=== PATIENT | male | born 1955 | race Caucasian/White ===

== ENCOUNTER 2019-07-05 14:30 | Inpatient (IN) | payer BC, SELFPAY ==
--- NOTE | ~2019-07-05 | CT_ITS ---
EXAMINATION: CT abdomen pelvis w con DATE: 07/05/2019 16:04 INDICATION: Left lower quadrant abdominal pain TECHNIQUE: Computed tomography (CT) of the abdomen and pelvis was performed with 100 cc Omnipaque 350 intravenous contrast. The dose-length product was 352.06 mGy-cm. Automated exposure control and iter ative reconstruction technique were employed. COMPARISON: None. FINDINGS: Lung bases are unremarkable. Heart size normal. Mild atherosclerosis without aneurysm. The liver, spleen, pancreas, adrenal glands are unremarkable. There are bilateral renal cysts, larges t in the left kidney measuring 5.7 cm. There are gallstones. There are multiple walled off fluid collections in the pelvis containing gas and fluid, consistent wi th multifocal abscess formation. There is thickening of the sigmoid colon. There is moderate phlegmon ous change in the pelvis. There is a left inguinal hernia containing nonobstructed colon. There is in flammatory change in the hernia sac. The appendix is not definitively visualized. IMPRESSION: 1. Abnormal thickening of the sigmoid colon. There is extensive phlegmonous change in the pelvis with multiple areas of abscess. There is suggestion of a thickened inflamed appendix on the coronal recon struction images, 59-63. Differential diagnosis includes perforated appendicitis and/or diverticuliti s. 2: Left inguinal hernia containing nonobstructed colon and phlegmonous change. 3: Cholelithiasis. Reviewed, dictated and finalized at location A. IMPRESSION: 1. Abnormal thickening of the sigmoid colon. There is extensive phlegmonous christ nge in the pelvis with multiple areas of abscess. There is suggestion of a thic kened inflamed appendix on the coronal reconstruction images, 59-63. Differenti al diagnosis includes perforated appendicitis and/or diverticulitis. 2: Left inguinal hernia containing nonobstructed colon and phlegmonous change. 3: Cholelithiasis.
--- NOTE | ~2019-07-05 | XR_ITS ---
EXAMINATION: XR abdomen/kub 1V DATE: 07/07/2019 05:25 INDICATION: Abdominal distention. TECHNIQUE: A supine view of the abdomen was obtained. COMPARISON: CT abdomen and pelvis 07/05/2019 FINDINGS: There are multiple dilated loops of small bowel. The colon is normal in caliber. IMPRESSION: 1. Dilated small bowel, consistent with adynamic ileus versus small bowel obstruction. Reviewed, dictated and finalized at location A. IMPRESSION: 1. Dilated small bowel, consistent with adynamic ileus versus small bowel obstr uction.
[2019-07-05 14:35] VITALS: BP 182/101; PULSE 84; RESP 22; TEMP 36.2; O2SAT 100
--- NOTE | 2019-07-05 14:44 | ED.ABDPAIN ---
HPI - Abdominal Pain General Chief Complaint: Abdominal Pain Stated Complaint: Abd Pain Time Seen by Provider: 07/05/19 14:35 History of Present Illness HPI narrative: Patient presents with 1 week of left lower quadrant abdominal pain. He has had a left inguinal hernia for many years and was told in the past to get it fixed. The pain is 6-7 out of 10 worse with palpitation. The pain is also worse with the effort to urinate or pass stool. He has no nausea or vomiting. He has had no blood in the stool. 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 He takes no prescription medications; he has no medication allergies. He has had left rotator cuff surgery in the past left wisdom tooth extraction and circumcision. He does not smoke drink or do recreational drugs. MD elicited complaint: abdominal pain Pertinent past history: other Onset (ago): week(s) Pain Consistency: constant Location: LLQ Severity: severe Radiation: none Exacerbating factors: bowel movement Relieving factors: nothing Context: confirms other Related Data Home Medications Medication Instructions Recorded Confirmed No Home Medications 07/05/19 07/05/19 Allergies Allergy/AdvReac Type Severity Reaction Status Date / Time No Known Allergies Allergy Verified 07/05/19 14:55 Review of Systems Review of Systems: Narrative: CONSTITUTIONAL: Denies fever, chills, or sweats. EYES: Denies visual changes, redness, or discharge. ENT: Denies rhinorrhea, congestion, sore throat, or otalgia. CARDIOVASCULAR: Denies chest pain, palpitations, or edema. RESPIRATORY: Denies cough or dyspnea. GASTROINTESTINAL: Denies nausea, vomiting, or diarrhea. GENITOURINARY: Denies dysuria or hematuria. SKIN: Denies rash or itching. MUSCULOSKELETAL: Denies back pain, joint pain, or myalgia. NEUROLOGIC: Denies headache, numbness, or weakness. PSYCHIATRIC: Denies anxiety or depression. [facility] Social History Social History (Updated 07/05/19 @ 15:04 by Tena Delanye MD) Smoking status: Never smoker Alcohol intake: never Substance use: never Gender identity (if verbalized by the patient): Male Exam Narrative: Exam Narrative: GENERAL: Well-appearing, well-nourished, and in no acute distress. HEAD: Normocephalic, atraumatic. EYES: PERRLA and EOMI. ENT: Nares clear, no rhinorrhea or epistaxis. Mucous membranes moist. NECK: Supple. CHEST: Clear to auscultation. No respiratory distress. HEART: Regular rate and rhythm. No murmur heard. Normal peripheral pulses. ABDOMEN: Soft, distended, tender in the left lower quadrant. EXTREMITIES: Normal range of motion. No edema. SKIN: Warm, dry, no rash. NEURO: No focal deficits. Alert and oriented x3. PSYCH: Normal mood and affect. Course Course Emergency Course: 1634 Told the patient about the abscesses and that he will need surgery. He last ate at 10 AM. He said that the morphine helped some. I will call a general surgeon. Reevaluation(s) Reevaluation #1: The morphine helped the pain a little. He is okay with surgery. Date: 07/05/19 Time: 16:36 Consultations Consultation #1: Called Dr. Noyola and he will admit and continue the zosyn and consider surgery. Date: 07/05/19 Time: 16:48 Vital Signs Vital signs: Vital Signs Temperature 97.2 F L 07/05/19 14:35 Pulse Rate 84 07/05/19 14:35 Respiratory Rate 22 H 07/05/19 14:35 Blood Pressure 182/101 H 07/05/19 14:35 Pulse Oximetry 100 07/05/19 14:35 Temperature 97.2 F L 07/05/19 14:35 Pulse Rate 84 07/05/19 14:35 Respiratory Rate 22 H 07/05/19 14:35 Blood Pressure 182/101 H 07/05/19 14:35 Pulse Oximetry 100 07/05/19 14:35 MDM - Abdominal Pain Lab Data Attestation: I reviewed the patient's lab results. Result diagrams: 07/05/19 14:53 07/05/19 14:53 Labs: Lab Results 07/05/19 07/05/19 07/05/19 Range/Units 14:53 14:53 15:15 WBC 17.4 H (4.5-10.0) K/mm3 RBC 5.13 (4.6-6.20) M/mm3 Hgb 14.3 (14.0-
[2019-07-05] MEDS: MORPHINE SULFATE 4 MG/ML INJ IV PUSH ×2 (14:54→16:47)
[2019-07-05] MEDS: SODIUM CHLORIDE 0.9% IV 1,000 ML 150 ML IV CONT ×2 (14:54→17:43)
[2019-07-05 15:02] LABS: Basophils Absolute Auto 0.1 K/mm3 (0.0-0.1); Basophils Percent Auto 0.3 % (0.2-1.2); Eosinophils Absolute Auto 0.1 K/mm3 (0-0.3); Eosinophils Percent Auto 0.4 % (0-4.4); Hematocrit 44.2 % (42.0-52.0); Hemoglobin 14.3 g/dL (14.0-18.0); Immature Granulocyte Absolute 0.41 K/mm3 (0.00-0.031); Immature Granulocyte Percent A 2.4 % (0-0.5); Lymphocytes Absolute Auto 1.59 K/mm3 (0.9-3.2); Lymphocytes Percent Auto 9.1 % (18.3-44.2); Mean Corpuscular HGB Conc 32.4 g/dl (32-36); Mean Corpuscular Hemoglobin 27.9 pg (26-34); Mean Corpuscular Volume 86.2 fl (80-100); Mean Platelet Volume 10.2 fl (7.4-10.4); Monocytes Absolute Auto 1.2 K/mm3 (0.1-0.6); Monocytes Percent Auto 6.6 % (2.6-8.5); Neutrophils Absolute Auto 14.1 K/mm3 (1.3-6.7); Neutrophils Percent Auto 81.2 % (45.5-73.1); Platelet Count Result 204 k/mm3 (150-375); Red Blood Count 5.13 M/mm3 (4.6-6.20); Red Cell Distribution Width 13.2 % (11.5-14.5); White Blood Count 17.4 K/mm3 (4.5-10.0)
[2019-07-05 15:10] LABS: Alanine Aminotransferase 100 U/L (4-50); Albumin Level 3.5 g/dL (3.5-5.1); Alkaline Phosphatase 156 U/L (38-126); Aspartate Amino Transferase 38 U/L (17-59); Bilirubin,Total 0.6 mg/dL (0.2-1.3); Blood Urea Nitrogen 17 mg/dL (9-20); Calcium 8.7 mg/dL (8.4-10.2); Carbon Dioxide 30 mmol/L (22-30); Chloride 97 mmol/L (98-107); Estimated CRCL calculation 70 ml/min; Estimated Glomerular Filt Rate > 60; Glucose 190 mg/dL (75-110); Lipase 105 U/L (23-300); Potassium 3.1 mmol/L (3.4-5.0); Sodium 134 mmol/L (137-145)
[2019-07-05 15:26] LABS: Add Urine Microscopic? YES; Appearance Urine Clear (Clear); Bilirubin Urine Negative (Negative); Blood Urine Negative (Negative); Color Urine Yellow (Yellow); Glucose Urine UA 3+ mg/dL (Negative); Ketones Urine Negative (Negative); Leukocyte Esterase Ur Negative LEU/UL (Negative); Mucus Urine Rare /lpf; Nitrate Urine Negative (Negative); Protein Urine Negative (Negative); RBC Urine 0-2 /hpf (0-2); Specific Grav Ur 1.025 (1.001-1.035); WBC Urine 0-3 /hpf
[2019-07-05] MEDS: Please add drug allergy info to patient profile. 1 EACH XX (16:47)
[2019-07-05 17:34] VITALS: BP 132/82; PULSE 77; RESP 16; O2SAT 100
--- NOTE | 2019-07-05 19:01 | ADMGEN ---
This patient, Dino Kent, was admitted to 3 Med Surg Room 320-01. Patient/family oriented to hospital policies and general routines including ID bracelet, bed and alarms, visiting hours, pain management, procedures, bathroom and other care routines, personal items, smoking policy, room service/diet, and visiting hours. Valuables list has been completed. Information on how to activate the Rapid Response Team has been discussed. Patient/Family are encouraged to report perceived risks to care and to ask questions if they do not understand what they are told or what they should do.
[2019-07-05 19:03] VITALS: BMI 25.5
[2019-07-05 21:27] VITALS: BP 137/71; PULSE 71; RESP 18; TEMP 36.9; O2SAT 98
[2019-07-06 05:22] VITALS: BP 132/75; PULSE 73; RESP 16; TEMP 36.6; O2SAT 99
[2019-07-06] MEDS: KCL 40 MEQ/0.9% SOD CHL 1,000 ML 150 ML IV CONT ×2 (08:09→16:57)
--- NOTE | 2019-07-06 10:11 | PM.IMHP ---
H&P: HPI History of Present Illness Chief complaint: pelvic abscesses Narrative: Dino Kent is a 63 year old male who presented to the emergency department yesterday with abdominal pain for the past week. He started out with upper abdominal pain that eventually migrated to the lower midline. Was experiencing nausea and vomiting and also felt somewhat feverish. His temperature was over 99 last Friday. He was not having much appetite and felt like he would vomit anything up. He was also noted to be hyperglycemic at work last week and was sent home from work. His pain did seem to improve temporarily 3 days ago. On Friday the pain was feeling somewhat better and he felt like he could tolerate some food. By Friday evening the pain was coming back worse again. He has never experienced anything quite like this before. He was experiencing some constipation along with the pain, but by Friday his bowels were moving. Review of Systems Review of Systems: All systems reviewed & are unremarkable except as noted in HPI and below Constitutional: Constitutional: Reports fever(s) Eyes: Eyes: Denies change in vision ENT: Denies hearing loss, Denies neck pain and Denies sore throat Cardiovascular: Cardiovascular: Denies chest pain and Denies dyspnea Respiratory: Respiratory: Denies cough, Denies dyspnea and Denies wheezing Gastrointestinal: Gastrointestinal: Reports as per HPI Genitourinary: Genitourinary: Denies hematuria and Denies dysuria Musculoskeletal: Musculoskeletal: Denies arthralgias, Denies joint swelling and Denies neck pain Allergic/Immunologic: Allergic/Immunologic: Denies wheezing PMFSH Surgical History Surgical History (Updated 07/06/19 @ 10:15 by Azar Noyola DO) History of rotator cuff surgery History of wisdom tooth extraction Family History Family History Father Hypertension Social History Social History Smoking status: Never smoker Second hand tobacco smoke exposure: No Alcohol intake: former Substance use: never Substance use type: does not use Gender identity (if verbalized by the patient): Male Spiritual care concerns: No Meds Home Medications and Allergies Home Medications Medication Instructions Recorded Confirmed Type No Home Medications 07/05/19 07/05/19 History Allergies Allergy/AdvReac Type Severity Reaction Status Date / Time No Known Allergies Allergy Verified 07/05/19 14:55 Vital Signs Vital Signs - 24 hr 07/05/19 14:35 07/05/19 17:34 07/05/19 21:27 Temperature 36.2 C L 36.9 C Pulse Rate 84 77 71 Respiratory Rate 22 H 16 18 Blood Pressure 182/101 H 132/82 137/71 Pulse Oximetry 100 100 98 07/06/19 05:22 Temperature 36.6 C Pulse Rate 73 Respiratory Rate 16 Blood Pressure 132/75 Pulse Oximetry 99 Exam Const: General: alert; No acute distress Orientation/consciousness: patient oriented x3 Limitations: no limitations HENMT: Head: normocephalic and atraumatic Ears: hearing grossly normal bilaterally General nose exam: Normal external nose present and Normal nares present Mouth: Yes Normal oral and palatal mucosa present and Yes moist mucous membranes Eyes: General: appearance normal, both eyes and all related structures Conjunctivae: conjunctivae normal Sclera: sclerae normal Pupils: Equal, round and reactive pupils present EOM: EOMs intact bilaterally Neck: Neck: normal visual inspection, full ROM, no lymphadenopathy, supple and no JVD Lymphatic: no lymphadenopathy noted Chest: Chest palpation & inspection: normal inspection of the chest Resp: Effort & Inspection: normal respiratory effort and able to speak in complete sentences Auscultation: clear to auscultation bilaterally Percussion: percussion normal Cardio: Jugular venous distension: no JVD Rate: regular rate Rhythm: regular rhythm Hea
[2019-07-06] MEDS: ENOXAPARIN 40 MG/0.4 ML SYRINGE SUB-Q (13:11)
[2019-07-06] MEDS: HYDROMORPHONE HCL 1 MG/ML INJ 0.5 MG IV PUSH ×2 (13:15→20:29)
[2019-07-06 14:00] VITALS: BP 148/76; PULSE 78; RESP 16; TEMP 36.9; O2SAT 99
[2019-07-06 22:00] VITALS: BP 135/69; PULSE 85; RESP 16; TEMP 37.4; O2SAT 97
[2019-07-07] VITALS (12 sets, daily range): BP systolic 143–185; BP diastolic 78–94; PULSE 68–91; RESP 14–21; TEMP 36.3–37.1; O2SAT 96–100
[2019-07-07] MEDS: HYDROMORPHONE HCL 1 MG/ML INJ 0.5 MG IV PUSH ×4 (02:16→13:08)
[2019-07-07] MEDS: KCL 40 MEQ/0.9% SOD CHL 1,000 ML 150 ML IV CONT ×2 (02:17→09:15)
[2019-07-07 06:51] LABS: Blood Urea Nitrogen 10 mg/dL (9-20); Carbon Dioxide 26 mmol/L (22-30); Chloride 102 mmol/L (98-107); Estimated CRCL calculation 57 ml/min; Estimated Glomerular Filt Rate > 60; Glucose 167 mg/dL (75-110); Potassium 4.1 mmol/L (3.4-5.0); Sodium 132 mmol/L (137-145)
[2019-07-07 07:03] LABS: Hematocrit 34.5 % (42.0-52.0); Hemoglobin 11.2 g/dL (14.0-18.0); Mean Corpuscular HGB Conc 32.5 g/dl (32-36); Mean Corpuscular Hemoglobin 28.2 pg (26-34); Mean Corpuscular Volume 86.9 fl (80-100); Mean Platelet Volume 10.6 fl (7.4-10.4); Platelet Count Result 176 k/mm3 (150-375); Red Blood Count 3.97 M/mm3 (4.6-6.20); Red Cell Distribution Width 13.2 % (11.5-14.5); White Blood Count 17.7 K/mm3 (4.5-10.0)
--- NOTE | 2019-07-07 09:06 | PM.PNGS ---
Progress Note: A&P Assessment and Plan (1) Lower abdominal pain: Code(s): R10.30 - Lower abdominal pain, unspecified Status: Acute Assessment and Plan: Still having significant abdominal pain and leukocytosis, he did not improve with attempted nonoperative management I have recommended laparoscopic appendectomy, possible open. Discussed procedure, risks, benefits, and alternatives. Questions answered Discussed that with the duration of his symptoms prior to presenting to the hospital, this is a very good chance that there are going to be significant adhesions and inflammation making this surgery more difficult. This could increase chance of conversion to open, partial bowel resection, and prolonged hospital stay and other complications. Patient voiced his understanding. (2) Abnormal CT of the abdomen: Code(s): R93.5 - Abnormal findings on diagnostic imaging of other abdominal regions, including retroperitoneum Status: Acute (3) Leukocytosis: Qualifiers: Leukocytosis type: unspecified Qualified Code(s): D72.829 - Elevated white blood cell count, unspecified Code(s): D72.829 - Elevated white blood cell count, unspecified Status: Acute Subjective Subjective Date/Time Seen: 07/07/19 09:06 Pain hasn't improved. Passing some flatus and had very small, mostly mucus BM this AM. No fevers. Exam GI: Inspection: other (mild distention) GI Palp: Yes Tenderness to palpation present (GI) and Yes Guarding due to palpation present (GI) (lower abdomen) Auscultation: Hypoactive bowel sounds present Objective Data Vital Signs Vital Signs: Vital Signs - 24 hr 07/06/19 14:00 07/06/19 22:00 07/07/19 06:00 Temperature 36.9 C 37.4 C 36.7 C Pulse Rate 78 85 73 Respiratory Rate 16 16 16 Blood Pressure 148/76 H 135/69 143/83 H Pulse Oximetry 99 97 97 Intake/Output Intake/Output: Intake & Output 07/04/19 07/05/19 07/06/19 07/07/19 23:59 23:59 23:59 23:59 Intake Total 2100 2210 2687 Output Total 900 Balance 2100 1310 2687 Meds/Results Medications: Active Medications Generic Name Dose Route Start Last Admin Trade Name Freq PRN Reason Stop Dose Admin Acetaminophen 1,000 mg 07/06/19 10:08 Tylenol Tablet PO Q6H PRN Mild Pain (1-3) or Fever Enoxaparin Sodium 40 mg 07/06/19 09:00 07/06/19 13:11 Lovenox SUB-Q 40 mg DAILY ANA LAURA Administration Hydromorphone HCl 0.5 mg 07/06/19 10:08 07/07/19 08:30 Dilaudid Inj IV PUSH 0.5 mg Q2H PRN Administration Pain Rated 4-6 Hydromorphone HCl 1 mg 07/06/19 10:08 Dilaudid Inj IV PUSH Q2H PRN Pain Rated 7-10 Potassium Chloride/Sodium Chloride 1,000 mls @ 150 mls/hr 07/06/19 09:00 07/07/19 05:25 Kcl 40 Meq/Ns IV CONT 0 mls/hr .Q6H40M ANA LAURA Infusion Piperacillin Sod/Tazobactam Sod 4.5 gm in 100 mls @ 200 mls/hr 07/06/19 08:00 07/07/19 06:27 Zosyn 4.5 Gm/D5w 100 Ml IVPB Infused Q6HR ANA LAURA Infusion Ondansetron HCl 4 mg 07/05/19 16:59 Zofran Inj IV PUSH Q4H PRN Nausea Radiology Results: ITS Impressions Abdomen/Pelvis CT 07/05/19 16:07 IMPRESSION: 1. Abnormal thickening of the sigmoid colon. There is extensive phlegmonous change in the pelvis with multiple areas of abscess. There is suggestion of a thickened inflamed appendix on the coronal reconstruction images, 59-63. Differential diagnosis includes perforated appendicitis and/or diverticulitis. 2: Left inguinal hernia containing nonobstructed colon and phlegmonous change. 3: Cholelithiasis. Abdomen X-Ray 07/07/19 06:53 IMPRESSION: 1. Dilated small bowel, consistent with adynamic ileus versus small bowel obstruction. Labs Labs: Laboratory Results - last 24 hr 07/07/19 07/07/19 06:23 06:23 WBC 17.7 H RBC 3.97 L Hgb 11.2 L D Hct 34.5 L MCV 86.9 MCH 28.2 MCHC 32.5 RDW 13.2 Plt Count 176 MPV 10.6 H Sodium 132 L Potassium 4.1 Chlor
[2019-07-07] MEDS: POTASSIUM CHLORIDE INJ 10 MEQ in DEXTROSE 5%/0.45% SOD CHL 1,000 ML 100 MEQ IV CONT (12:04)
[2019-07-07] MEDS: LACTATED RINGERS 1,000 ML 30 ML IV CONT (15:00)
[2019-07-07] MEDS: IBUPROFEN IV 800 MG/200 ML 800 MG/200 ML BAG 400 MG IVPB (15:25)
--- NOTE | 2019-07-07 15:33 | WPDANESEPPF ---
Anes - Initial Pre Proc Eval Procedure: Operation Date: 07/07/19 20:00 Proposed Procedures p Laparoscopic Appendectomy - Azar Noyola DO Date/Time: 07/07/19 15:33 Surgeon: Azar Noyola DO Pre Op Diagnosis: pelvic abscesses Patient Data Age: 63 Gender: M Height: 5 ft 4 in Weight: 67.6 kg Last Vital Signs Temp 37.1 C 07/07/19 14:00 Pulse 82 07/07/19 14:00 Resp 18 07/07/19 14:00 BP 160/78 H 07/07/19 14:00 Pulse Ox 99 07/07/19 14:00 Allergies Allergy/AdvReac Type Severity Reaction Status Date / Time No Known Allergies Allergy Verified 07/07/19 15:12 Home Medications Medication Instructions Recorded Confirmed Type No Home Medications 07/05/19 07/05/19 History Laboratory Tests 07/07/19 07/07/19 06:23 06:23 WBC 17.7 K/mm3 H K/mm3 (4.5-10.0) RBC 3.97 M/mm3 L M/mm3 (4.6-6.20) Hgb 11.2 g/dL L D g/dL (14.0-18.0) Hct 34.5 % L % (42.0-52.0) MCV 86.9 fl fl (80-100) MCH 28.2 pg pg (26-34) MCHC 32.5 g/dl g/dl (32-36) RDW 13.2 % % (11.5-14.5) Plt Count 176 k/mm3 k/mm3 (150-375) MPV 10.6 fl H fl (7.4-10.4) Sodium 132 mmol/L L mmol/L (137-145) Potassium 4.1 mmol/L mmol/L (3.4-5.0) Chloride 102 mmol/L mmol/L (98-107) Carbon Dioxide 26 mmol/L mmol/L (22-30) BUN 10 mg/dL D mg/dL (9-20) Creatinine 1.00 mg/dL mg/dL (0.7-1.3) Estim Creat Clear Calc 57 ml/min ml/min Estimated GFR > 60 (59 - ) Glucose 167 mg/dL H mg/dL (75-110) Calcium 8.0 mg/dL L mg/dL (8.4-10.2) Patient hx anesthesia problems: none Family hx anesthesia problems: none PMFSH Past Medical History Medical History Arthritis Surgical History Surgical History History of rotator cuff surgery History of wisdom tooth extraction Family History Family History Father Hypertension Social History Social History Smoking status: Never smoker Second hand tobacco smoke exposure: No Alcohol intake: former Substance use: never Substance use type: does not use Gender identity (if verbalized by the patient): Male Spiritual care concerns: No Anes - Eval Final PreProcedure Day of Procedure 07/07/19 15:33 Patient weight: normal Heart: regular rate and rhythm Lungs: clear to auscultation Airway: Mallampati scale and special considerations poor dentition Neurological: alert and oriented Last oral intake: >/= 8 hours ASA classification: II Emergent: yes Anesthetic plan: proceed Anesthesia type and monitoring: general ETT and standard monitoring Informed Consent: The patient's anesthetic plan and its attendant risks and benefits were discussed with the patient/family/POA. Questions were solicited and answers provided to the satisfaction of the patient/family/POA.
[2019-07-07] MEDS: BUPIVACAINE/EPINEPHRINE 0.5% 30 ML VIAL INFILTRATE (17:58)
--- NOTE | 2019-07-07 18:50 | PM.PROC ---
Procedure Note - Detailed Date of procedure: 07/07/19 Pre-op diagnosis: Lower abdominal pain, abnormal CT abdomen Post-op diagnosis: other (Perforated appendicitis, multiple intra-abdominal abscesses) Procedure performed: Laparoscopic Appendectomy Description of procedure: Procedure as well as risks, benefits, and alternatives were explained to the patient. The patient agreed to proceed. Written consent was obtained and placed in chart prior to procedure. The patient was brought back to surgical suite. He was placed supine on operating table. Time-out was done to confirm the patient and procedure. The patient was then intubated by the Anesthesia Department. His abdomen was prepped and draped in sterile fashion using chlorhexidine prep. A 12 mm incision was made at the inferior portion of the umbilicus. Blunt dissection was carried out down to the linea alba. The linea alba was then incised using a 15 blade scalpel. Then bluntly entered into the peritoneal cavity. A 12 mm trocar was then inserted, and carbon dioxide insufflation was used to create a pneumoperitoneum. The camera was inserted and the abdomen was inspected. No immediate abnormalities were identified. The patient was then placed in slight Trendelenburg position and rotated to the left. A 5 mm incision was made in the suprapubic region in midline and a 5 mm trocar was inserted under direct visualization. A 5 mm incision was made in the left lower quadrant and a 5 mm trocar was inserted under direct visualization. The right lower quadrant was carefully inspected. The cecum was identified and then this was traced back to the appendix. There were multiple abscesses near the midportion of the appendix and extending down into the pelvis and left lower quadrant. These were drained and suctioned using a suction dev ops engineer. The appendix was identified and grasped at the mesoappendix and lifted anteriorly. Careful blunt dissection was carried out at the base of the appendix through the mesoappendix using a [place] grasper. An Endo-KARYNA 45 mm blue load stapler was then advanced across the base of the appendix and clamped and fired. A white reload was then clamped across the mesoappendix and fired. This freed up our appendix completely. It was then placed in an EndoCatch bag and removed through the left lower quadrant port. The staple lines were then inspected. Hemostasis appeared adequate and the staple lines appeared secure. The area was then irrigated with sterile saline. The pelvis was then carefully inspected and irrigated with sterile saline as well and the remainder of the abdomen was carefully inspected. The patient was then flattened out in bed. One final inspection was made around the abdominal cavity and no other abnormalities were seen. The ports were then removed under direct visualization. The camera was removed and the pneumoperitoneum was released. The fascia of the umbilical incision was reapproximated using an 0 Vicryl [id number] suture. 0.5% bupivacaine with epinephrine was infiltrated locally around each of the incisions. The skin of the incisions was then approximated using 4-0 Monocryl subcuticular suture and Exofin glue was applied on top. The patient was then awakened from anesthesia, extubated, and transferred to Recovery. Anesthesia: GETA and local (0.5% bupivicaine with epi) Surgeon: Azar Noyola DO Estimated blood loss (mL): 50 Drains: Yes (19 round Sigifredo) Pathology: yes (Appendix) Complications: No immediate complications Condition: stable Disposition: floor Findings: This is a 63-year-old man who presented to the emergency department with lower abdominal pain over the past week. He was also experiencing fever, nausea, and vomiting. A CT in the emergency department showed evidence of multiple small abscesses and phlegmonous changes around the appendix and sigmoid colon. This appeared likely to be perforated appendicitis. He was admitted to the
--- NOTE | 2019-07-07 19:03 | SUR.PHASEI ---
1902- DR. EDWARDS AT BEDSIDE. INFORMED OF PATIENT'S BLOOD PRESSURE 185/86. NO NEW ORDERS. STATES TO CALL IF SBP REMAINS ABOVE 190 MM HG
--- NOTE | 2019-07-07 19:28 | SUR.PHASEI ---
1925- DROWSY. RATING PAIN AT 6/10. OXYGEN SATURATION 91% ON ROOM AIR WHEN PATIENT ASLEEP. INCREASES WITH DEEP BREATHING. OXYGEN APPLIED D/T FENTANYL ADMINISTRATION.
[2019-07-07] MEDS: HYDROMORPHONE HCL 1 MG/ML INJ IV PUSH (21:14)
[2019-07-08] VITALS (8 sets, daily range): BP systolic 119–152; BP diastolic 64–85; PULSE 62–78; RESP 16–20; TEMP 36.3–36.8; O2SAT 97–100
[2019-07-08] MEDS: HYDROMORPHONE HCL 1 MG/ML INJ 0.5 MG IV PUSH ×5 (00:24→18:30)
[2019-07-08 05:51] LABS: Hematocrit 37.6 % (42.0-52.0); Hemoglobin 12.2 g/dL (14.0-18.0); Mean Corpuscular HGB Conc 32.4 g/dl (32-36); Mean Corpuscular Hemoglobin 27.6 pg (26-34); Mean Corpuscular Volume 85.1 fl (80-100); Mean Platelet Volume 10.4 fl (7.4-10.4); Platelet Count Result 202 k/mm3 (150-375); Red Blood Count 4.42 M/mm3 (4.6-6.20); Red Cell Distribution Width 12.9 % (11.5-14.5); White Blood Count 20.5 K/mm3 (4.5-10.0)
[2019-07-08 06:03] LABS: Blood Urea Nitrogen 11 mg/dL (9-20); Calcium 8.1 mg/dL (8.4-10.2); Carbon Dioxide 27 mmol/L (22-30); Chloride 100 mmol/L (98-107); Estimated CRCL calculation 70 ml/min; Estimated Glomerular Filt Rate > 60; Glucose 205 mg/dL (75-110); Potassium 4.4 mmol/L (3.4-5.0); Sodium 131 mmol/L (137-145)
[2019-07-08] MEDS: ENOXAPARIN 40 MG/0.4 ML SYRINGE SUB-Q (09:13)
[2019-07-08] MEDS: polyethylene glycoL 3350 17 GM POWD.PACK PO (09:13)
--- NOTE | 2019-07-08 12:49 | PM.PNGS ---
Progress Note: A&P Assessment and Plan (1) Acute appendicitis with perforation and peritoneal abscess: Code(s): K35.33 - Acute appendicitis with perforation and localized peritonitis, with abscess Status: Acute Assessment and Plan: Continue IV Zosyn Await improvement in distention before advancing diet Increase activity, encouraged ambulating in halls Monitor RAYMOND output Subjective Subjective Date/Time Seen: 07/08/19 12:49 Patient feeling bloated and not much appetite. Passing some flatus, no BM. Not ambulating much yet. Exam GI: Inspection: distended, incision (glue in place) and other (RAYMOND drain serosanguinous) GI Palp: Yes Tenderness to palpation present (GI) (generalized) Objective Data Vital Signs Vital Signs: Vital Signs - 24 hr 07/07/19 14:00 07/07/19 18:48 07/07/19 19:00 Temperature 37.1 C 36.3 C L Pulse Rate 82 91 77 Respiratory Rate 18 18 21 H Blood Pressure 160/78 H 171/94 H 185/86 H Pulse Oximetry 99 99 100 07/07/19 19:15 07/07/19 19:26 07/07/19 19:30 Temperature Pulse Rate 73 73 Respiratory Rate 18 14 Blood Pressure 164/81 H 172/83 H Pulse Oximetry 99 96 97 07/07/19 19:45 07/07/19 20:20 07/07/19 20:32 Temperature 36.5 C Pulse Rate 74 68 70 Respiratory Rate 15 16 18 Blood Pressure 170/89 H 156/90 H 184/89 H Pulse Oximetry 99 100 100 07/07/19 21:32 07/08/19 02:00 07/08/19 05:32 Temperature 36.3 C L 36.4 C 36.6 C Pulse Rate 70 70 62 Respiratory Rate 18 18 20 Blood Pressure 149/80 H 119/64 149/80 H Pulse Oximetry 100 100 100 07/08/19 06:27 07/08/19 10:00 07/08/19 10:04 Temperature 36.8 C Pulse Rate 75 Respiratory Rate 18 Blood Pressure 152/81 H Pulse Oximetry 99 98 97 Intake/Output Intake/Output: Intake & Output 07/05/19 07/06/19 07/07/19 07/08/19 23:59 23:59 23:59 23:59 Intake Total 2100 2210 3250 1230 Output Total 424 04 1552 Balance 2100 1310 3235 220 Meds/Results Medications: Active Medications Generic Name Dose Route Start Last Admin Trade Name Freq PRN Reason Stop Dose Admin Acetaminophen 1,000 mg 07/06/19 10:08 Tylenol Tablet PO Q6H PRN Mild Pain (1-3) or Fever Enoxaparin Sodium 40 mg 07/06/19 09:00 07/08/19 09:13 Lovenox SUB-Q 40 mg DAILY ANA LAURA Administration Hydromorphone HCl 0.5 mg 07/06/19 10:08 07/08/19 11:58 Dilaudid Inj IV PUSH 0.5 mg Q2H PRN Administration Pain Rated 4-6 Hydromorphone HCl 1 mg 07/06/19 10:08 07/07/19 21:14 Dilaudid Inj IV PUSH 1 mg Q2H PRN Administration Pain Rated 7-10 Piperacillin/Tazobactam/Dextrose 3.375 gm in 50 mls @ 100 mls/hr 07/07/19 12:00 07/08/19 12:32 Zosyn 3.375 Gm/D5w 50ml Pm IVPB Infused Q6H ANA LAURA Infusion Potassium Chloride 10 meq/ 1,000 mls @ 100 mls/hr 07/07/19 09:30 07/07/19 12:04 Dextrose/Sodium Chloride IV CONT 100 mls/hr .Q10H ANA LAURA Administration Ondansetron HCl 4 mg 07/05/19 16:59 Zofran Inj IV PUSH Q4H PRN Nausea Polyethylene Glycol 17 gm 07/08/19 09:00 07/08/19 09:13 Miralax PO 17 gm QAM ANA LAURA Administration Radiology Results: ITS Impressions Abdomen/Pelvis CT 07/05/19 16:07 IMPRESSION: 1. Abnormal thickening of the sigmoid colon. There is extensive phlegmonous change in the pelvis with multiple areas of abscess. There is suggestion of a thickened inflamed appendix on the coronal reconstruction images, 59-63. Differential diagnosis includes perforated appendicitis and/or diverticulitis. 2: Left inguinal hernia containing nonobstructed colon and phlegmonous change. 3: Cholelithiasis. Abdomen X-Ray 07/07/19 06:53 IMPRESSION: 1. Dilated small bowel, consistent with adynamic ileus versus small bowel obstruction. Labs Labs: Laboratory Results - last 24 hr 07/08/19 07/08/19 05:10 05:10 WBC 20.5 H RBC 4.42 L Hgb 12.2 L Hct 37.6 L MCV 85.1 MCH 27.6 MCHC 32.4 RDW 12.9 Plt Count 202 MPV 10.4 Sodium 131 L
[2019-07-08] MEDS: IBUPROFEN IV 800 MG/200 ML 800 MG/200 ML BAG 400 MG IVPB ×2 (14:04→18:31)
[2019-07-08] MEDS: POTASSIUM CHLORIDE INJ 10 MEQ in DEXTROSE 5%/0.45% SOD CHL 1,000 ML 100 MEQ IV CONT (15:08)
[2019-07-09] MEDS: HYDROMORPHONE HCL 1 MG/ML INJ 0.5 MG IV PUSH ×2 (00:08→04:38)
[2019-07-09] MEDS: IBUPROFEN IV 800 MG/200 ML 800 MG/200 ML BAG 400 MG IVPB (00:12)
[2019-07-09 05:24] LABS: Hematocrit 36.2 % (42.0-52.0); Hemoglobin 11.9 g/dL (14.0-18.0); Mean Corpuscular HGB Conc 32.9 g/dl (32-36); Mean Corpuscular Hemoglobin 28.4 pg (26-34); Mean Corpuscular Volume 86.4 fl (80-100); Mean Platelet Volume 10.2 fl (7.4-10.4); Platelet Count Result 237 k/mm3 (150-375); Red Blood Count 4.19 M/mm3 (4.6-6.20); Red Cell Distribution Width 13.2 % (11.5-14.5); White Blood Count 16.3 K/mm3 (4.5-10.0)
[2019-07-09 05:49] LABS: Blood Urea Nitrogen 8 mg/dL (9-20); Calcium 7.9 mg/dL (8.4-10.2); Carbon Dioxide 27 mmol/L (22-30); Chloride 101 mmol/L (98-107); Estimated CRCL calculation 70 ml/min; Estimated Glomerular Filt Rate > 60; Glucose 207 mg/dL (75-110); Potassium 3.7 mmol/L (3.4-5.0); Sodium 133 mmol/L (137-145)
[2019-07-09 06:00] VITALS: BP 147/80; PULSE 73; RESP 16; TEMP 36.7; O2SAT 97
[2019-07-09] MEDS: HYDROMORPHONE HCL 1 MG/ML INJ IV PUSH (08:09)
[2019-07-09] MEDS: ENOXAPARIN 40 MG/0.4 ML SYRINGE SUB-Q (08:12)
--- NOTE | 2019-07-09 09:57 | PM.PNGS ---
Progress Note: A&P Assessment and Plan (1) Acute appendicitis with perforation and peritoneal abscess: Code(s): K35.33 - Acute appendicitis with perforation and localized peritonitis, with abscess Status: Acute Assessment and Plan: POD2 and doing well. WBC down to 16,300 today and remains afebrile. Continue IV antibiotics. Will start advancing diet to full liquids. Stop IV fluids and transition to oral pain medication. Monitor RAYMOND drain output. Encouraged increased activity with ambulation in the halls and sitting up in the chair with meals. (2) Leukocytosis: Qualifiers: Leukocytosis type: unspecified Qualified Code(s): D72.829 - Elevated white blood cell count, unspecified Code(s): D72.829 - Elevated white blood cell count, unspecified Status: Acute Assessment and Plan: Improving. Continue to monitor. Additional Plan Patient has had high blood sugars since admitted. Will check a Hgb A1C in the morning to look for underlying diabetes, although this could be related to the stress response of the acute infection. Discussed plan of care with Dr. Noyola today. Subjective Subjective Date/Time Seen: 07/09/19 09:00 Post Op day: 2 (lap appy) Patient reports: no new complaints, feels better, tolerating liquids well, no flatus and no bowel movement Interval history: Patient reports feeling much better today compared to yesterday. He is sitting in a chair eating a clear liquid breakfast tray. He does report some bloating this morning with the clear liquids but no nausea or vomiting. Denies flatus. Reports abdominal pain with movement but tolerable at rest. No other complaints at this time. Review of Systems Review of Systems: All systems reviewed & are unremarkable except as noted in HPI and below Cardiovascular: Cardiovascular: Denies chest pain, Denies leg edema and Denies lightheadedness Respiratory: Respiratory: Denies dyspnea Genitourinary: Genitourinary: Reports no additional male genitourinary complaints Exam Const: General: comfortable, no acute distress, alert and awake Orientation/consciousness: patient oriented x3 GI: Inspection: incision (Abdominal incisions clean/dry/intact.) and other (mildly distended) GI Palp: Yes Soft to palpation, Yes Tenderness to palpation present (GI) (diffusely tender with incisional tenderness), No Guarding due to palpation present (GI) and No Rebound tenderness present Auscultation: normal bowel sounds Other: RAYMOND drain with cloudy serosanguineous drainage. Neuro: General: patient oriented x3 and moves all extremities Cranial nerves: Yes CN's II-XII intact bilaterally Speech: normal speech Extrem: General: no calf tenderness and no edema Psych: Mental Status: mental status grossly normal Attitude: cooperative Thought process: Normal thought process present Thought content: Yes Normal thought content present Objective Data Vital Signs Vital Signs: Vital Signs - 24 hr 07/08/19 10:00 07/08/19 10:04 07/08/19 14:00 Temperature 36.8 C 36.8 C Pulse Rate 75 74 Respiratory Rate 18 18 Blood Pressure 152/81 H 136/76 Pulse Oximetry 98 97 98 07/08/19 17:32 07/08/19 22:00 07/09/19 06:00 Temperature 36.3 C L 36.3 C L 36.7 C Pulse Rate 78 67 73 Respiratory Rate 18 16 16 Blood Pressure 150/85 H 135/80 147/80 H Pulse Oximetry 98 99 97 Intake/Output Intake/Output: Intake & Output 07/06/19 07/07/19 07/08/19 07/09/19 23:59 23:59 23:59 23:59 Intake Total 2210 4250 2160 750 Output Total 672 96 0466 620 Balance 1310 4235 550 130 Meds/Results Medications: Active Medications Generic Name Dose Route Start Last Admin Trade Name Freq PRN Reason Stop Dose Admin Acetaminophen 1,000 mg 07/06/19 10:08 Tylenol Tablet PO Q6H PRN Mild Pain (1-3) or Fever Enoxaparin Sodium 40 mg 07/06/19 09:00 07/09/19 08:12 Lovenox SUB-Q 40 mg DAILY ANA LAURA Administration Hydromorphone HCl 0.5 mg 07/06/19 10:08 04
[2019-07-09] MEDS: polyethylene glycoL 3350 17 GM POWD.PACK PO (12:37)
[2019-07-09 15:16] VITALS: BP 146/89; PULSE 75; RESP 16; TEMP 36.7; O2SAT 97
[2019-07-09] MEDS: ONDANSETRON INJ 4 MG/2 ML VIAL IV PUSH (16:36)
[2019-07-09 22:42] VITALS: BP 142/71; PULSE 74; RESP 16; TEMP 36.7; O2SAT 98
[2019-07-10] MEDS: CALCIUM CARBONATE (TUMS) 500 MG (200 MG ELEMENTAL) PO ×2 (04:48→12:47)
[2019-07-10 06:03] LABS: Hematocrit 40.9 % (42.0-52.0); Mean Corpuscular HGB Conc 31.8 g/dl (32-36); Mean Corpuscular Hemoglobin 27.8 pg (26-34); Mean Corpuscular Volume 87.6 fl (80-100); Mean Platelet Volume 10.4 fl (7.4-10.4); Platelet Count Result 250 k/mm3 (150-375); Red Blood Count 4.67 M/mm3 (4.6-6.20); Red Cell Distribution Width 13.2 % (11.5-14.5); White Blood Count 16.3 K/mm3 (4.5-10.0)
[2019-07-10 06:18] LABS: Blood Urea Nitrogen 7 mg/dL (9-20); Calcium 8.6 mg/dL (8.4-10.2); Carbon Dioxide 30 mmol/L (22-30); Chloride 98 mmol/L (98-107); Estimated CRCL calculation 63 ml/min; Estimated Glomerular Filt Rate > 60; Glucose 163 mg/dL (75-110); Potassium 3.9 mmol/L (3.4-5.0); Sodium 134 mmol/L (137-145)
[2019-07-10 06:19] LABS: Hemoglobin A1C 7.9 % (<5.7)
[2019-07-10 06:43] VITALS: BP 163/84; PULSE 86; RESP 18; TEMP 37.1; O2SAT 96
[2019-07-10] MEDS: PANTOPRAZOLE SODIUM IV 40 MG VIAL IV PUSH (07:59)
[2019-07-10] MEDS: ENOXAPARIN 40 MG/0.4 ML SYRINGE SUB-Q (08:02)
[2019-07-10] MEDS: polyethylene glycoL 3350 17 GM POWD.PACK PO (08:03)
--- NOTE | 2019-07-10 12:53 | PM.PNGS ---
Progress Note: A&P Assessment and Plan (1) Acute appendicitis with perforation and peritoneal abscess: Code(s): K35.33 - Acute appendicitis with perforation and localized peritonitis, with abscess Status: Acute Assessment and Plan: better today, await bowel fxn, cont full liquids for now, cont drain for now, cont abx, OOB/IS Subjective Subjective Date/Time Seen: 07/10/19 12:53 Interval history: Patient reports he feels better this morning. Patient reports no nausea and is tolerating full liquid. The patient has a tent on advancing diet this point given nausea and bloating yesterday. Patient reports some flatus however no bowel function. Patient reports soreness is much improved and he is ambulating without issue. Review of Systems Constitutional: Constitutional: Reports fatigue, Denies fever(s), Reports lethargy and Reports poor appetite Cardiovascular: Cardiovascular: Denies chest pain Respiratory: Respiratory: Denies dyspnea Gastrointestinal: Gastrointestinal: Reports abdominal pain, Reports bloating, Reports GI cramping, Reports dyspepsia, Reports heartburn, Reports nausea and Denies vomiting Exam Const: General: cooperative, healthy appearing and no acute distress Resp: Effort & Inspection: normal respiratory effort Auscultation: clear to auscultation bilaterally Cardio: Rate: regular rate Rhythm: regular rhythm GI: Inspection: normal to inspection Other: soft, mod dist, gurvinder TTP, incisions C/D/I, +bs Objective Data Vital Signs Vital Signs: Vital Signs - 24 hr 07/09/19 15:16 07/09/19 22:42 07/10/19 06:43 Temperature 36.7 C 36.7 C 37.1 C Pulse Rate 75 74 86 Respiratory Rate 16 16 18 Blood Pressure 146/89 H 142/71 H 163/84 H Pulse Oximetry 97 98 96 Intake/Output Intake/Output: Intake & Output 07/07/19 07/08/19 07/09/19 07/10/19 23:59 23:59 23:59 23:59 Intake Total 4250 2160 2260 630 Output Total 15 1610 1325 500 Balance 4235 550 935 130 Meds/Results Medications: Active Medications Generic Name Dose Route Start Last Admin Trade Name Freq PRN Reason Stop Dose Admin Acetaminophen 1,000 mg 07/06/19 10:08 Tylenol Tablet PO Q6H PRN Mild Pain (1-3) or Fever Hydrocodone Bitart/Acetaminophen 1 tab 07/09/19 10:20 [place] 5-325 Mg PO Q4H PRN Pain Rated 4-6 Hydrocodone Bitart/Acetaminophen 1 tab 07/09/19 10:20 07/10/19 04:48 [place] 7.5-325 Mg PO 1 tab Q4H PRN Administration Pain Rated 7-10 Calcium Carbonate 200 mg 07/09/19 16:52 07/10/19 12:47 Tums PO 200 mg Q4H PRN Administration Indigestion Enoxaparin Sodium 40 mg 07/06/19 09:00 07/10/19 08:02 Lovenox SUB-Q 40 mg DAILY ANA LAURA Administration Piperacillin/Tazobactam/Dextrose 3.375 gm in 50 mls @ 100 mls/hr 07/07/19 12:00 07/10/19 12:44 Zosyn 3.375 Gm/D5w 50ml Pm IVPB 100 mls/hr Q6H ANA LAURA Administration Ondansetron HCl 4 mg 07/05/19 16:59 07/09/19 16:36 Zofran Inj IV PUSH 4 mg Q4H PRN Administration Nausea Pantoprazole Sodium 40 mg 07/10/19 09:00 07/10/19 07:59 Protonix Iv IV PUSH 40 mg QAM ANA LAURA Administration Polyethylene Glycol 17 gm 07/08/19 09:00 07/10/19 08:03 Miralax PO 17 gm QAM ANA LAURA Administration Radiology Results: ITS Impressions Abdomen/Pelvis CT 07/05/19 16:07 IMPRESSION: 1. Abnormal thickening of the sigmoid colon. There is extensive phlegmonous change in the pelvis with multiple areas of abscess. There is suggestion of a thickened inflamed appendix on the coronal reconstruction images, 59-63. Differential diagnosis includes perforated appendicitis and/or diverticulitis. 2: Left inguinal hernia containing nonobstructed colon and phlegmonous change. 3: Cholelithiasis. Abdomen X-Ray 07/07/19 06:53 IMPRESSION: 1. Dilated small bowel, consistent with adynamic ileus versus small bowel obstruction. Labs Labs: Laboratory Results - last 24 hr 07/10/19 07/10/19 07/10/19
[2019-07-10 14:07] VITALS: BP 138/96; PULSE 82; RESP 16; TEMP 36.4; O2SAT 98
[2019-07-10 22:29] VITALS: BP 139/78; PULSE 79; RESP 16; TEMP 36.7; O2SAT 97
[2019-07-11 06:00] VITALS: BP 183/85; PULSE 68; RESP 18; TEMP 36.7; O2SAT 98
[2019-07-11 06:16] LABS: Hematocrit 35.7 % (42.0-52.0); Hemoglobin 11.5 g/dL (14.0-18.0); Mean Corpuscular HGB Conc 32.2 g/dl (32-36); Mean Corpuscular Hemoglobin 28.4 pg (26-34); Mean Corpuscular Volume 88.1 fl (80-100); Mean Platelet Volume 10.2 fl (7.4-10.4); Platelet Count Result 296 k/mm3 (150-375); Red Blood Count 4.05 M/mm3 (4.6-6.20); Red Cell Distribution Width 13.1 % (11.5-14.5); White Blood Count 12.3 K/mm3 (4.5-10.0)
[2019-07-11 06:32] LABS: Blood Urea Nitrogen 8 mg/dL (9-20); Calcium 8.3 mg/dL (8.4-10.2); Carbon Dioxide 30 mmol/L (22-30); Chloride 100 mmol/L (98-107); Estimated CRCL calculation 63 ml/min; Estimated Glomerular Filt Rate > 60; Glucose 141 mg/dL (75-110); Potassium 3.8 mmol/L (3.4-5.0); Sodium 133 mmol/L (137-145)
[2019-07-11] MEDS: polyethylene glycoL 3350 17 GM POWD.PACK PO (08:11)
[2019-07-11] MEDS: ENOXAPARIN 40 MG/0.4 ML SYRINGE SUB-Q (08:12)
[2019-07-11] MEDS: PANTOPRAZOLE SODIUM IV 40 MG VIAL IV PUSH (08:12)
--- NOTE | 2019-07-11 10:14 | PM.DS ---
DS: Diagnosis Admitting Diagnosis Admitting Diagnosis: Lower abdominal pain, unspecified Discharge Diagnosis (1) Acute appendicitis with perforation and peritoneal abscess: Code(s): K35.33 - Acute appendicitis with perforation and localized peritonitis, with abscess Status: Acute Assessment and Plan: s/p lap appy, RAYMOND removed, cont abx additional 7 days, f/u 2 wks DS: Summary Hospital Course Reason for hospitalization: perforated appendicitis Hospital Course: Pt presented to ED c perforated appendicitis and phelgmon/abscess. Pt initially treated c IV abx but did not improve. Pt taken to OR and lap appy performed by Dr. Noyola, please see full op report for details. Pt had postop ileus but resolved c conservative tx. Pt c cont abx tx and WBC noted to be trending near normal at dc. Pt c normal bowel fxn at dc and radha soft diet. Status at Discharge Cognitive/behavioral status at discharge: normal baseine Functional status at discharge: independent ambulation Overall status at discharge: patient is progressing back to baseline Time Spent with Patient Time attestation: Total time spent providing and/or coordinating discharge services: Time spent: Less than 30 minutes Specific discharge activities: no lifting > 25 lbs x 2 wks Exam Const: General: no acute distress Limitations: no limitations Resp: Auscultation: clear to auscultation bilaterally Cardio: Rate: regular rate Rhythm: regular rhythm GI: GI Palp: Yes Soft to palpation Other: sl dist, gurvinder TTP, incisions C/D/I, RAYMOND c serous output (removed at bedside) DS: Data Data Completed and Pending Completed studies during hospitalization: Pending at discharge 07/07/19 18:14 Surgical [PTH] Routine Labs on day of discharge: Labs from last 24 hours 07/11/19 07/11/19 05:37 05:37 WBC 12.3 H RBC 4.05 L Hgb 11.5 L Hct 35.7 L MCV 88.1 MCH 28.4 MCHC 32.2 RDW 13.1 Plt Count 296 MPV 10.2 Sodium 133 L Potassium 3.8 Chloride 100 Carbon Dioxide 30 BUN 8 L Creatinine 0.90 Estim Creat Clear Calc 63 Estimated GFR > 60 Glucose 141 H Calcium 8.3 L Discharge Plan Discharge Attending physician on discharge: Azar Noyola Consulting providers: Oliver Bajwa Discharging Clinician: Tracy Rodriguez Anticipated Discharge Date/Time: 07/11/19 10:20 Patient Disposition: Home, Self-Care Activity: may shower Diet: as tolerated Wound Care Instructions: keep dressing dry, remove dressing to shower and change dressing daily Patient Instructions: Antibiotic Form Stand Alone Forms: General Discharge Information Follow-up/Referrals: Azar Noyola DO [Physician] - 2 Weeks Discharge Medications: New hydrocodone-acetaminophen 5-325 mg Tablet 1 tab PO Q4H PRN (Reason: Pain Rated 4-6) Qty: 20 RF: 0 docusate sodium [Colace] 100 mg capsule 100 mg PO BID Qty: 20 RF: 0 metronidazole 500 mg tablet 500 mg PO Q12H Qty: 14 RF: 0 ciprofloxacin HCl 500 mg tablet 500 mg PO Q12H Qty: 14 RF: 0 No Action No Home Medications RF: 0 Date of admission: 07/05/19 16:59 Primary Care Provider: PHYSICIAN,QUALIFICATIONS EXAMINER Admitting Provider: Azar Noyola Attending physician on admission: Azar Noyola Condition: Serious
== END 2019-07-11 12:30 | disposition home or self-care (01) | DRG 340 ==
LOC: ANHED 17:02 → ANH3MEDSUR 07-06 09:10
PROVIDERS: Emergency Medicine; Nurse Practitioner Family; Admitting Provider Surgery; Emergency Provider Emergency Medicine; Visit Provider Surgery
PROC: 0DTJ4ZZ Resection of Appendix, Percutaneous Endoscopic Approach (ICD-10-PCS; CPT 44970; principal; 2019-07-07 20:00)
DX: K35.33 Acute appendicitis with perforation, localized peritonitis, and gangrene, with abscess (principal); K40.90 Unilateral inguinal hernia, without obstruction or gangrene, not specified as recurrent; D72.829 Elevated white blood cell count, unspecified; R73.9 Hyperglycemia, unspecified; M19.90 Unspecified osteoarthritis, unspecified site
CPT/HCPCS: 36415; 74018; 74177; 80048; 80053; 81001; 83036; 83690; 85025; 85027; 88304; 96361; 96365; 96375; 96376; 99285; A9270; C9113; J1170; J1650; J1741; J2250; J2270; J2405; J2543; J3010; J3480; J7030; J7120; Q9967

== ENCOUNTER 2019-07-23 09:50 | Outpatient (CLI) | payer BC, SELFPAY ==
[2019-07-23 10:08] LABS: Basophils Percent Auto 0.6 % (0.2-1.2); Eosinophils Absolute Auto 0.1 K/mm3 (0-0.3); Eosinophils Percent Auto 1.9 % (0-4.4); Hematocrit 40.9 % (42.0-52.0); Hemoglobin 13.4 g/dL (14.0-18.0); Immature Granulocyte Absolute 0.02 K/mm3 (0.00-0.031); Immature Granulocyte Percent A 0.3 % (0-0.5); Lymphocytes Absolute Auto 1.88 K/mm3 (0.9-3.2); Lymphocytes Percent Auto 27.2 % (18.3-44.2); Mean Corpuscular HGB Conc 32.8 g/dl (32-36); Mean Corpuscular Hemoglobin 28.3 pg (26-34); Mean Corpuscular Volume 86.5 fl (80-100); Mean Platelet Volume 10.3 fl (7.4-10.4); Monocytes Absolute Auto 0.5 K/mm3 (0.1-0.6); Monocytes Percent Auto 7.5 % (2.6-8.5); Neutrophils Absolute Auto 4.3 K/mm3 (1.3-6.7); Neutrophils Percent Auto 62.5 % (45.5-73.1); Platelet Count Result 234 k/mm3 (150-375); Red Blood Count 4.73 M/mm3 (4.6-6.20); Red Cell Distribution Width 13.2 % (11.5-14.5); White Blood Count 6.9 K/mm3 (4.5-10.0)
== END 2019-07-23 09:51 | disposition home or self-care (01) ==
PROVIDERS: Visit Provider Nurse Practitioner Family
DX: K35.33 Acute appendicitis with perforation, localized peritonitis, and gangrene, with abscess (principal)
CPT/HCPCS: 36415; 85025